=== PATIENT | male | born 1940 | race Caucasian/White ===

== ENCOUNTER 2019-10-11 17:37 | Inpatient (IN) | payer OTHER ==
[~2019-10-11] VITALS: Ht 167.6 cm; Wt 76.2 kg
[~2019-10-11 17:37] MED LIST: ACET-787 PO; DIGO-119 PO; GLIM2TAB PO; ISOS10TA9 PO; METO-251 PO; METR500T1 PO; OMEP40EC24 PO; SITA100T8 PO; VALS160T2 PO; WARF4TAB PO
[2019-10-11 18:05] VITALS: BP 176/84
[2019-10-11] MEDS ORDERED: ACETAMINOPHEN EXTRA STRENGTH 500 MG TAB PO ONE (18:15)
--- NOTE | 2019-10-11 18:17 | NUR ---
W/C ASSISTED TO BED 5.
--- NOTE | 2019-10-11 18:44 | NUR ---
PATIENT CAME WITH INDWELLING RAMOS CATHETER ATTACHED TO LEG, 100ML CLEAR YELLOW URINE IN BAG.
--- NOTE | 2019-10-11 18:44 | NUR ---
78 YEAR OLD MALE COMPLAINS OF DIZZINESS, COUGH, FEVER, AND UNABLE TO HOLD URINE. FEVER 101.9. DAUGHTER STATES PATIENT HAS BEEN PROGRESSIVELY GETTING WEAKER OVER THE PAST 3 DAYS. PATIENT STATES THAT TODAY NOW HE IS UNABLE TO STANDO ON HIS OWN. PATIENT AOX4, BREATHING EVEN AND UNLABORED, SKIN WARM AND DRY. BED IN LOWEST POSITION, LOCKED, BED RAIL UPX1. 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
[2019-10-11] MEDS ORDERED: NACL 0.9% 2,000 ML IV ONE (19:07)
--- NOTE | 2019-10-11 19:30 | NUR ---
PATIENT ALERT AND ORIENTED, BREATHING EVEN AND UNLABORED
[2019-10-11 19:47] LABS: BASOPHILS % (AUTO) 0.4 % (0.0-2.0); EOSINOPHILS % (AUTO) 0.3 % (0.0-4.0); HEMATOCRIT 42.3 % (36-52); HEMOGLOBIN 13.9 g/dL (12.0-18.0); LYMPHOCYTES # (AUTO) 0.6 K/uL (2.0-11.5); LYMPHOCYTES % (AUTO) 5.2 % (20.5-51.1); MEAN CORPUSCULAR HEMOGLOBIN 29 pg (27-31); MEAN CORPUSCULAR HGB CONC 33 g/dL (33-37); MEAN CORPUSCULAR VOLUME 89.4 fL (80-94); MONOCYTES # (AUTO) 0.6 K/uL (0.8-1.0); MONOCYTES % (AUTO) 5.6 % (1.7-9.3); NEUTROPHILS # (AUTO) 10.1 K/uL (1.8-7.7); NEUTROPHILS % (AUTO) 88.5 % (42.2-75.2); PLATELET COUNT (AUTO) 200 K/uL (140-450); RED BLOOD CELL COUNT(AUTO) 4.73 MIL/uL (4.20-6.10); RED CELL DISTRIBUTION WIDTH 14.1 % (11.6-13.7); WHITE BLOOD COUNT (AUTO) 11.4 K/uL (4.8-10.8)
[2019-10-11 20:06] LABS: ALBUMIN 3.5 g/dL (3.4-5.0); ASPARTATE AMINOTRANSFERASE 20 U/L (15-37); CARBON DIOXIDE 27.8 mmol/L (21-32); CREATININE 1.1 mg/dL (0.7-1.3); GLUCOSE 167 mg/dL (74-106); LIPASE 112 U/L (73-393); TOTAL BILIRUBIN 0.9 mg/dL (0.0-1.0); UREA NITROGEN, BLOOD 19 mg/dL (7-18)
[2019-10-11 20:14] LABS: PROTHROMBIN TIME 10.8 secs (10.8-13.4)
[2019-10-11 20:18] LABS: ANION GAP 15.5 (8-16); CHLORIDE 93 mmol/L (98-107); POTASSIUM 3.3 mmol/L (3.5-5.1); SODIUM SERUM 133 mmol/L (136-145)
--- NOTE | 2019-10-11 20:37 | NUR ---
PATIENT ALERT AND ORIENTED, BREATHING EVEN AND UNLABORED
[2019-10-11 20:51] LABS: APPEARANCE,URINE CLEAR (CLEAR); BILIRUBIN,URINE NEGATIVE (NEGATIVE); BLOOD, URINE 3+ (NEGATIVE); COLOR,URINE YELLOW (YELLOW); LEUKOCYTE ESTERASE ,URINE TRACE (NEGATIVE); NITRITE, URINE NEGATIVE (NEGATIVE); UGLUCOSE NEGATIVE (NEGATIVE)
[2019-10-11 21:01] LABS: RBC,URINE 11-20 (MOD) /HPF (0-5)
--- NOTE | 2019-10-11 21:38 | NUR ---
PATIENT RESTING WITH EYES CLOSED, BREATHING EVNE AND UNLABORED
--- NOTE | 2019-10-11 22:22 | NUR ---
1000ML URINE DRAINED FROM INDWELLING CATHETER ATTACHED TO LEG
[2019-10-11] MEDS ORDERED: OSELTAMIVIR PHOSPHATE 75 MG CAP PO ONE (22:25)
--- NOTE | 2019-10-11 22:39 | NUR ---
PATIENT ALERT AND ORIENTED, BREATHING EVEN AND UNLABORED
[2019-10-11] MEDS ORDERED: cefTRIAXone 1,000 MG VIAL ONE (22:45)
--- NOTE | 2019-10-11 23:51 | NUR ---
PATIENT ALERT AND ORIENTED, BREATHING EVEN AND UNLABORED
[2019-10-12] MEDS ORDERED: DEXTROSE 50% 50 ML SYR IVP PRN (00:15)
[2019-10-12] MEDS ORDERED: HYDROcodone/APAP 10/325 MG 1 TAB TAB PO PRN (00:15)
[2019-10-12] MEDS ORDERED: ALBUTEROL 0.083% 2.5 MG/3 ML NEBU INH PRN (00:20)
[2019-10-12] MEDS ORDERED: MORPHINE SULFATE 4 MG/ML SYR IVP PRN (00:20)
[2019-10-12] MEDS ORDERED: ACETAMINOPHEN 325 MG TAB PO PRN (00:20)
[2019-10-12] MEDS ORDERED: ONDANSETRON 4 MG/2 ML VIAL IVP PRN (00:20)
[2019-10-12 01:05] VITALS: BP 126/70
--- NOTE | 2019-10-12 01:05 | NUR ---
REPORT RECEIVED FROM AM NURSE AT BEDSIDE. PT IN STABLE CONDITION. AAOX4. INTRODUCED SELF TO PT. BOARD UPDATED. PT IS ON BEDREST. USUALLY AMBULATORY BUT IN THE PAST COUPLE NIGHTS PT HAS BEEN GETTING WEAKER. PT ON 2L O2 VIA NC. PT HAS RAMOS IN PLACE. IV SITE R AC 20G RUNNING NS@75ML/HR PATENT AND INTACT. SKIN WARM, DRY, AND INTACT WITH NO OPEN WOUNDS. BED LOCKED IN LOW POSITION. CALL MILLS WITHIN REACH. SAFETY PRECAUTION IN PLACE. ALL NEEDS MET AT THIS TIME. Addendum: 10/12/19 at 0131 by Antoine Sarmiento RN MRSA SWAB COLLECTED.
--- NOTE | 2019-10-12 01:10 | NUR ---
Patient will be admitted to care of DR MARIA. Admited to TELE. Will go to room 127B. Belongings list completed. Report to CORRINE ZAPIEN.
[2019-10-12] MEDS: NACL 0.9% 1,000 ML IV SCH ×2 (03:30→13:34)
--- NOTE | 2019-10-12 03:35 | NUR ---
PT SLEEPING COMFORTABLY BUT AROUSABLE. NO S/S OF DISTRESS NOTED. NO COMPLAINTS OF PAIN. NO SOB. AFEBRILE. WILL CONTINUE TO MONITOR.
[2019-10-12 04:00] VITALS: BP 133/70
[2019-10-12] MEDS: BLOOD GLUCOSE MONITORING 1 DEV DEV FS SCH ×2 (05:46→11:57)
--- NOTE | 2019-10-12 05:46 | NUR ---
PROTONIX GIVEN PO. BS 160. 2 UNITS OF HUMALOG GIVEN. PT TOLERATED WELL.
[2019-10-12] MEDS: INSULIN LISPRO SLIDING SCALE 100 UNITS/ML VIAL SUBQ PRN ×2 (05:47→12:18)
[2019-10-12] MEDS ORDERED: PANTOPRAZOLE 40 MG TABEC PO SCH (06:30)
--- NOTE | 2019-10-12 07:00 | NUR ---
PT SLEEPING COMFORTABLY BUT AROUSABLE. PT IN STABLE CONDITION.
--- NOTE | 2019-10-12 07:15 | NUR ---
RECEIVED PT FROM PARTITION MAKING MACHINE OPERATOR NURSECORRINE, PT IS AWAKE AND LYING ON THE BED WITH SIDE RAILS UP AND CALL LIGHT WITHIN REACH, IV LINE ON THE RT AC G. 20 WITH NS INFUSING AT 75ML/HR, PT VERBALIZED A TOLERABLE HEADACHE, BUT DOES NOT WANT A PAIN MEDICATION, DENIES SOB, ON O2 2L NC, NO SIGN OF DISTRESS NOTED AND WILL CONTINUE TO MONITOR PT
[2019-10-12 08:00] VITALS: BP 126/91
--- NOTE | 2019-10-12 08:12 | NUR ---
INFORMED DR. MARIA OF THE PT'S K LEVEL OF 3.3 AND MADE AN ORDER TO GIVE PT 40KCL PO ONCE, ACKNOWLEDGED READ BACK AND VERIFIED. WILL CARRY OUT MD ORDER.
[2019-10-12] MEDS ORDERED: METOPROLOL 50 MG TAB PO SCH (09:00)
[2019-10-12] MEDS ORDERED: OSELTAMIVIR PHOSPHATE 75 MG CAP PO SCH (09:00)
[2019-10-12] MEDS ORDERED: GLIMEPIRIDE 2 MG TAB PO SCH (09:00)
[2019-10-12] MEDS ORDERED: ENOXAPARIN 40 MG/0.4 ML SYR SUBQ SCH (09:00)
[2019-10-12] MEDS ORDERED: POTASSIUM CHLORIDE 10 MEQ TABER PO SCH (09:00)
[2019-10-12] MEDS ORDERED: DIGOXIN 0.25 MG TAB PO SCH (09:00)
[2019-10-12] MEDS ORDERED: VALSARTAN 80 MG TAB PO SCH (09:00)
[2019-10-12] MEDS ORDERED: NON-FORMULARY ITEM (Omeprazole* (Prilosec*) 40 MG) PO SCH (09:00)
--- NOTE | 2019-10-12 09:02 | NUR ---
PATIENT HAS BEEN SCREENED AND CATEGORIZED MODERATE NUTRITION RISK. PATIENT WILL BE SEEN WITHIN 3-5 DAYS OF ADMISSION. 10/14/19 10/16/[address]
[2019-10-12] MEDS: ISOSORBIDE DINITRATE 10 MG TAB PO SCH ×2 (09:28→13:37)
--- NOTE | 2019-10-12 09:32 | NUR ---
PT IS AWAKE AND SEATED ON THE BED, ORAL AM MEDICATIONS WERE GIVEN AND TOLERATED IT, TEACHINGS GIVEN TO PT REGARDING MEDICATIONS EFFECT AND SIDE EFFECTS, PARAMETERS CHECKED, BP IS 136/91, PULSE IS 98 MANUALLY, O2 SATURATION IS 97% AND PT VERBALIZED UNDERSTANDING. WILL MONITOR PT.
--- NOTE | 2019-10-12 09:45 | NUR ---
PT IS HAVING PT EVALUATION NOW, NO SOB NOTED.
[2019-10-12] MEDS: FUROSEMIDE 20 MG/2 ML VIAL IVP SCH ×2 (11:15→11:59)
--- NOTE | 2019-10-12 11:57 | NUR ---
PT IS AWAKE AND LYING ON THE BED, LASIX WAS NOT GIVEN BP IS 110/78, PULSE IS 91, O2 SATURATION IS 98% ON 2O O2 NC, BLOOD GLUCOSE CHECK DONE AND RESULT IS 182, INSULIN COVERAGE WILL BE GIVEN PER SLIDING SCALE. WILL MONITOR PT.
[2019-10-12 12:00] VITALS: BP 110/78
[2019-10-12 12:00] LABS: BASOPHILS % (AUTO) 0.3 % (0.0-2.0); EOSINOPHILS % (AUTO) 0.6 % (0.0-4.0); HEMATOCRIT 39.1 % (36-52); HEMOGLOBIN 12.9 g/dL (12.0-18.0); LYMPHOCYTES # (AUTO) 0.8 K/uL (2.0-11.5); LYMPHOCYTES % (AUTO) 10.6 % (20.5-51.1); MEAN CORPUSCULAR HEMOGLOBIN 30 pg (27-31); MEAN CORPUSCULAR HGB CONC 33 g/dL (33-37); MEAN CORPUSCULAR VOLUME 90.2 fL (80-94); MONOCYTES # (AUTO) 0.7 K/uL (0.8-1.0); MONOCYTES % (AUTO) 9.1 % (1.7-9.3); NEUTROPHILS # (AUTO) 5.9 K/uL (1.8-7.7); NEUTROPHILS % (AUTO) 79.4 % (42.2-75.2); PLATELET COUNT (AUTO) 183 K/uL (140-450); RED BLOOD CELL COUNT(AUTO) 4.33 MIL/uL (4.20-6.10); WHITE BLOOD COUNT (AUTO) 7.4 K/uL (4.8-10.8)
--- NOTE | 2019-10-12 12:18 | NUR ---
PT WAS GIVEN INSULIN 2 UNITS ON THE LEFT UA PER SLIDING SCALE, WILL MONITOR PT
[2019-10-12] MEDS ORDERED: TAM75 PO (12:43)
[2019-10-12] MEDS ORDERED: CIPR500T4 PO (12:43)
[2019-10-12 13:00] LABS: CARBON DIOXIDE 27.5 mmol/L (21-32); CREATININE 0.8 mg/dL (0.7-1.3); GLUCOSE 185 mg/dL (74-106); UREA NITROGEN, BLOOD 15 mg/dL (7-18)
[2019-10-12 13:01] LABS: SODIUM SERUM 137 mmol/L (136-145)
[2019-10-12 13:02] LABS: ANION GAP 12.9 (8-16); CHLORIDE 100 mmol/L (98-107); POTASSIUM 3.4 mmol/L (3.5-5.1)
[2019-10-12 13:23] LABS: PROTHROMBIN TIME 10.5 secs (10.8-13.4)
--- NOTE | 2019-10-12 13:37 | NUR ---
PT'S SCHEDULED BP MED WAS NOPT GIVEN BP IS 108/72, PULSE IS 88, O2 SATURATION IS 98%, TAYLOR CHISHOLM ON THE BEDSIDE, WILL MONITOR PT.
--- NOTE | 2019-10-12 16:10 | NUR ---
PT WAS GIVEN TYLENOL FOR A TEMPERATURE OF 101. WILL RE-ASSESS TEMP.
--- NOTE | 2019-10-12 16:46 | NUR ---
DISCHARGED PT TO HOME WITH DAUGHTER, DISCHARGED TEACHINGS AND PRESCRIPTION INSTRUCTIONS GIVEN TO PT AND VERBALIZED UNDERSTANDING PER TUBE SKIVER # [id number], IV LINE AND ARM BAND REMOVED, PT' TEMPERATURE AT THIS TIME IS 98.9, DENIES PAIN AND NO SIGN OF DISTRESS NOTED, RAMOS CATHETER CARE GIVEN TO PT AND VERBALIZED UNDERSTANDING ALSO.
[2019-10-12] MEDS ORDERED: WARFARIN SODIUM 4 MG PO SCH (21:00)
== END 2019-10-12 16:53 | disposition home or self-care (01) | DRG 640 ==
LOC: MED 17:37 → UNDOADMIN 21:21 → MTU 21:21 → MMU 10-12 00:17
PROVIDERS: ADMIT Internal Medicine; ATTEND Internal Medicine
DX: E87.6 Hypokalemia (principal); I50.43 Acute on chronic combined systolic (congestive) and diastolic (congestive) heart failure; N39.0 Urinary tract infection, site not specified; I11.0 Hypertensive heart disease with heart failure; J11.1 Influenza due to unidentified influenza virus with other respiratory manifestations; N40.0 Benign prostatic hyperplasia without lower urinary tract symptoms; E66.9 Obesity, unspecified; E11.9 Type 2 diabetes mellitus without complications; E78.5 Hyperlipidemia, unspecified; K21.9 Gastro-esophageal reflux disease without esophagitis; E86.0 Dehydration; I48.91 Unspecified atrial fibrillation; Z79.01 Long term (current) use of anticoagulants; Z95.2 Presence of prosthetic heart valve; Z68.27 Body mass index [BMI] 27.0-27.9, adult
CPT/HCPCS: 36415; 71045; 80048; 80053; 80162; 81001; 82948; 83605; 83690; 83880; 84484; 85025; 85610; 87040; 87081; 87086; 87804; 96360; 97116; 97161-GP; 99291; J0696; J1650; J1815; J1940; J7030; J7060; Q0092; Q9967